=== PATIENT | female | born 1995 | race Caucasian/White ===

== ENCOUNTER 2017-12-15 00:15 | Inpatient (IN) | payer MEDICAID ==
[~2017-12-15] VITALS: Ht 170.2 cm; Wt 68.0 kg
[2017-12-15 00:19] VITALS: BP 113/73
--- NOTE | 2017-12-15 00:28 | NUR ---
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 PT REPORTS SHE DRANK ACETONE, UNKNOWN AMOUNT. PT IS ALTERED ON ARRIVAL, GCS 13 WITH EYE OPENING TO VERBAL AND CONFUSION. PT IS SPITTING OUT FROTHY SALIVA. AIRWAY INTACT. DENIES PMH.
--- NOTE | 2017-12-15 00:28 | NUR ---
PT TAKEN TO BED 7
--- NOTE | 2017-12-15 00:31 | NUR ---
Dr. Hughes evaluating patient at bedside.
[2017-12-15] MEDS ORDERED: NACL 0.9% 1,000 ML IV ONE (00:35)
[2017-12-15] MEDS ORDERED: ACTIVATED CHARCOAL 50 GM/240 ML TUBE PO ONE (00:55)
[2017-12-15 00:56] LABS: BASOPHILS % (AUTO) 0.3 % (0.0-2.0); EOSINOPHILS % (AUTO) 0.5 % (0.0-4.0); HEMATOCRIT 46.2 % (36-48); HEMOGLOBIN 15.7 g/dL (12.0-16.0); LYMPHOCYTES # (AUTO) 2.8 K/uL (2.5-16.5); LYMPHOCYTES % (AUTO) 45.2 % (20.5-51.1); MEAN CORPUSCULAR HEMOGLOBIN 32 pg (27-31); MEAN CORPUSCULAR HGB CONC 34 g/dL (33-37); MONOCYTES # (AUTO) 0.5 K/uL (0.8-1.0); MONOCYTES % (AUTO) 8.1 % (1.7-9.3); NEUTROPHILS # (AUTO) 2.8 K/uL (1.8-7.7); NEUTROPHILS % (AUTO) 45.9 % (42.2-75.2); PLATELET COUNT (AUTO) 204 K/uL (140-450); RED BLOOD CELL COUNT(AUTO) 4.97 MIL/uL (4.20-5.40); RED CELL DISTRIBUTION WIDTH 13.8 % (11.6-13.7); WHITE BLOOD COUNT (AUTO) 6.1 K/uL (4.8-10.8)
--- NOTE | 2017-12-15 01:00 | NUR ---
# 16 FR Angel catheter with 10 ml utilizing sterile technique. Immediate return of 10 ml CLEAR, YELLOW urine noted. Bedside drainage bag placed below level of bladder. Urine sample collected and sent to lab. Pt tolerated procedure WELL.
--- NOTE | 2017-12-15 01:01 | NUR ---
I CALLED POISON CONTROL, SPOKE TO AYAAN. PT DRANK UNK AMOUNT OF ACETONE THREE OR FOUR HOURS AGO. PT STS " I WANT TO KILL MYSELF." POISON CONTROL, STS " PT WILL NEED A FULL LAB WORK UP WITH ABG'S, WANDY AVILES, WATCH FOR ALOC, VSS." PT FAMILY UNABLE TO OBTAIN CHEMICAL MAKE UP OF ACETONE.
[2017-12-15 01:03] LABS: BARBITURATE, URINE NEG. ng/ml (NEG <=200); BENZODIAZEPINE, URINE NEG. ng/mL (NEG <=200); CANNABINOID, URINE POS. ng/mL (NEG <=50); COCAINE, URINE NEG. ng/mL (NEG <=300); OPIATE, URINE NEG. ng/mL (NEG <=2000); PHENCYCLIDINE SCREEN,URINE NEG. ng/mL (NEG <=25)
[2017-12-15 01:05] LABS: ANION GAP 12.4 (8-16); CARBON DIOXIDE 26.8 mmol/L (21-32); CHLORIDE 108 mmol/L (98-107); CREATININE 1.2 mg/dL (0.6-1.3); GFR ARICAN-AMERICAN 72 mL/min (>90); GLUCOSE 105 mg/dL (74-106); POTASSIUM 3.2 mmol/L (3.5-5.1); SODIUM SERUM 144 mmol/L (136-145); UREA NITROGEN, BLOOD 6 mg/dL (7-18)
[2017-12-15 01:08] LABS: ACETONE, SERUM NEGATIVE (NEGATIVE)
[2017-12-15] MEDS ORDERED: ONDANSETRON 4 MG/2 ML VIAL ONE (01:09)
--- NOTE | 2017-12-15 01:10 | NUR ---
PATIENT TOOK ACTIVATED CHARCOAL PO, PT TOLERATED WELL.
[2017-12-15 01:12] LABS: ALBUMIN 4.4 g/dL (3.4-5.0); ASPARTATE AMINOTRANSFERASE 20 U/L (15-37); TOTAL BILIRUBIN 0.2 mg/dL (0.0-1.0)
--- NOTE | 2017-12-15 01:20 | NUR ---
PT MOVED TO BED 10
--- NOTE | 2017-12-15 01:30 | NUR ---
PATIENT RESTING AT THIS TIME. NO SIGNS OF DISTRESS.
[2017-12-15] MEDS ORDERED: ONDANSETRON 4 MG/2 ML VIAL IVP ONE (01:40)
[2017-12-15] MEDS ORDERED: ACETAMINOPHEN 325 MG TAB PO PRN (02:15)
[2017-12-15] MEDS ORDERED: ONDANSETRON 4 MG/2 ML VIAL IVP PRN (02:15)
--- NOTE | 2017-12-15 02:25 | NUR ---
Dr. Samuel evaluating patient at bedside.
--- NOTE | 2017-12-15 02:42 | NUR ---
Patient will be admitted to care of DR. POWERS. Admited to M/S. Will go to room 105A. Belongings list completed. Report to NELY BULLOCK.
--- NOTE | 2017-12-15 02:50 | NUR ---
PT ARRIVED AT UNIT VIA BED, PT MOVED HERSELF TO THE BED, TOLERATED WELL, NO DISTRESS NOTED, BEDSIDE REPORT RECEIVED FROM ER NURSE LARISA BULLOCK, PT STABLE, NO DISTRESS NOTED, ALERT ORIENTED X4, PT ON ROOM AIR, NO SOB, IV TO R AC 22G PATENT, INTACT, ORIENT PT TO BED, CALL LIGHT, PT STATED UNDERSTANDING, MRSA SWAB TAKEN, V/S TAKEN WNL, INITIAL ASSESSMENT DONE, ALL SAFETY PRECAUTION MET, WILL CONTINUE TO MONITOR. Addendum: 12/15/17 at 0355 by Fifi Arreguin RN [facility] CATH IN PLACE. DRAINING CLEAR YELLOW URINE.
[2017-12-15 03:00] VITALS: BP 129/81
[2017-12-15] MEDS: NACL 0.9% 1,000 ML IV SCH ×2 (03:19→14:00)
--- NOTE | 2017-12-15 03:19 | NUR ---
DUE MEDICATION ORDERED GIVEN, PT TOLERATED WELL, NO DISTRESS NOTED, CALL LIGHT WITHIN REACH, WILL CONTINUE TO MONITOR.
[2017-12-15] MEDS ORDERED: POTASSIUM CHLORIDE 10 MEQ TABER PO SCH (03:30)
--- NOTE | 2017-12-15 04:04 | NUR ---
POISON CONTROL CALLED, TALKED TO TIFFANIE REGARDING PT, INFORM HER REGARDING PT LAB RESULTS, LAST SET OF VITAL SIGNS, AND PT STATEMENT REGARDING EVENTS BEFORE COMING TO THE HOSPITAL, WHICH PT STATED THAT SHE WAS DOING HER NAILS AND NOT DRINKING THE ACETONE.
[2017-12-15 04:27] LABS: FREE T4 (FREE THYROXINE) 1.22 ng/dL (0.76-1.46); MAGNESIUM 2.4 mg/dL (1.8-2.4); PHOSPHORUS 3.8 mg/dL (2.5-4.9); THYROID STIMULATING HORMONE 1.38 uIU/mL (0.34-3.74)
--- NOTE | 2017-12-15 05:01 | NUR ---
[facility] CATH REMOVED PER DR. SAEED, PT TOLERATED WELL, NO DISTRESS NOTED, CALL LIGHT WITHIN REACH, WILL CONTINUE TO MONITOR.
--- NOTE | 2017-12-15 06:17 | NUR ---
PATIENT HAS BEEN SCREENED AND CATEGORIZED LOW NUTRITION RISK. PATIENT WILL BE SEEN WITHIN 7 DAYS OF ADMISSION. 12/21/17 SAHIL ASHTON MS, RDN
[2017-12-15 06:47] LABS: BASOPHILS % (AUTO) 0.2 % (0.0-2.0); HEMATOCRIT 40.5 % (36-48); HEMOGLOBIN 13.7 g/dL (12.0-16.0); LYMPHOCYTES # (AUTO) 1.1 K/uL (2.5-16.5); LYMPHOCYTES % (AUTO) 17.3 % (20.5-51.1); MEAN CORPUSCULAR HEMOGLOBIN 31 pg (27-31); MEAN CORPUSCULAR HGB CONC 34 g/dL (33-37); MEAN CORPUSCULAR VOLUME 92.3 fL (80-94); MONOCYTES # (AUTO) 0.3 K/uL (0.8-1.0); MONOCYTES % (AUTO) 4.6 % (1.7-9.3); NEUTROPHILS % (AUTO) 77.9 % (42.2-75.2); PLATELET COUNT (AUTO) 178 K/uL (140-450); RED BLOOD CELL COUNT(AUTO) 4.38 MIL/uL (4.20-5.40); RED CELL DISTRIBUTION WIDTH 14.3 % (11.6-13.7); WHITE BLOOD COUNT (AUTO) 6.4 K/uL (4.8-10.8)
[2017-12-15 07:10] LABS: ANION GAP 10.3 (8-16); CARBON DIOXIDE 25.5 mmol/L (21-32); CREATININE 0.8 mg/dL (0.6-1.3); POTASSIUM 3.8 mmol/L (3.5-5.1)
[2017-12-15 07:13] LABS: CHOL/HDL RATIO 2.3 (1-4.5)
--- NOTE | 2017-12-15 07:29 | NUR ---
ENDORSED PT TO DAY SHIFT NURSE CRESCENCIO RN, PT IN STABLE CONDITION NO DISTRESS NOTED, CALL LIGHT WITHIN REACH.
--- NOTE | 2017-12-15 07:30 | NUR ---
RECEIVED BEDSIDE REPORT FROM CHILD CARE DIRECTOR NURSE. PATIENT IS AWAKE, ALERT AND ORIENTEDX4. NO SIGNS OF DISTRESS ON ROOM AIR. DX WAS ETOH AND SUICIDAL. ASKED PATIENT IF SHE IS SUICIDAL SHE SAID "NO, NOT AT ALL." SHE IS AMBULATORY. SKIN IS INTACT. R AC 20G INFUSING NS AT 100.CLEAN, DRY AND INTACT. BED IN LOW POSITION. CALL LIGHT WITHIN REACH. WILL CONTINUE TO MONITOR THE PATIENT
[2017-12-15 08:00] VITALS: BP 125/75
--- NOTE | 2017-12-15 08:17 | NUR ---
PATIENT IS NAUSEATED BUT PER PATIENT SHE REFUSED ANTI NAUSEA MEDS AT THIS TIME. SHE VOMITED. SHE SAID SHE JUST WANTS TO REST AND REQUESTED VEGAN FOOD. FNS BROUGHT HER OATMEAL. PATIENT IS AWARE, SHE SAID SHE WILL REST BEFORE EATING. WILL CONTINUE TO MONITOR THE PATIENT
--- NOTE | 2017-12-15 10:00 | NUR ---
FAMILY AT BEDSIDE. ALL QUESTIONS ANSWERED AT THIS TIME. BED IN LOW POSITION. CALL LIGHT WITHIN REACH. WILL CONTINUE TO MONITOR
[2017-12-15] MEDS ORDERED: LORazepam 0.5 MG TAB PO PRN (10:30)
--- NOTE | 2017-12-15 11:07 | NUR ---
ADMINISTERED PRN MEDS FOR ALCOHOL WITHDRAW AND ANTI NAUSEA MEDS. PATIENT VOMITEDX4 THIS MORNING. WILL CONTINUE TO MONITOR THE PATIENT
--- NOTE | 2017-12-15 11:47 | NUR ---
PATIENT FEELS BETTER. SHE THANKED ME FOR THE MEDS BECAUSE SHES NOT THROWING UP OR HAVING TREMORS FOR THE ALCOHOL WITHDRAW. PATIENT IS ON THE PHONE. WILL CONTINUE TO MONITOR
--- NOTE | 2017-12-15 12:36 | NUR ---
PATIENT IS SLEEPING. NO SIGNS OF DISTRESS ON ROOM AIR. BED IN LOW POSITION. WILL CONTINUE TO MONITOR THE PATIENT
--- NOTE | 2017-12-15 14:02 | NUR ---
ADMINISTERED IVF. IV IS CLEAN, DRY AND INTACT. NO SIGNS OF DISTRESS. WILL CONTINUE TO MONITOR THE PATIENT
--- NOTE | 2017-12-15 15:30 | NUR ---
PATIENT WENT AMA. DR STAPLES IS AWARE. PATIENT SIGNED AMA FORM. SHE REMOVED IV, IV TIP IS INTACT. EXPLAINED TO HER THE RISKS OF LEAVING AMA AND ENCOURAGED HER TO SEE PCP RONALD. REMOVED ID BANDS. PATIENT LEFT W FAMILY AMA.
== END 2017-12-15 15:30 | disposition left against medical advice (07) | DRG 42 ==
LOC: MED 00:15 → MTU 02:12
PROVIDERS: ADMIT Family Medicine; ATTEND Family Medicine
DX: G31.2 Degeneration of nervous system due to alcohol (principal); G92 Toxic encephalopathy; F10.129 Alcohol abuse with intoxication, unspecified; F12.90 Cannabis use, unspecified, uncomplicated; Y90.9 Presence of alcohol in blood, level not specified; E87.6 Hypokalemia; Z53.21 Procedure and treatment not carried out due to patient leaving prior to being seen by health care provider
CPT/HCPCS: 36415; 36600; 51702; 71045; 80048; 80053; 80305; 81025; 82009; 82803; 82948; 83036; 83690; 83735; 84100; 84439; 84443; 84484; 85025; 85610; 85730; 87081; 96374; 99285; G0482; J2405; J7030